=== PATIENT | female | born 1975 | race African-American/Black ===

== ENCOUNTER → 2016-10-14 | Outpatient (CLI) | payer OTHER ==
[~2016-10-14] MED LIST: ADVAIR 500-501 EACH INH; ALBUTEROL INH; AMOXICILLIN875 MG PO; AURALGAN OTIC S10 M1 AD; BENTYL20 MG DOB; FERROUS SULFAT325 MG PO; INHALER INH; LISINOPRIL20 MG PO; OMEPRAZOLE20 M2 PO; PHENERGAN25 M1 DOB; PRENATAL1 TA1 PO; TAMIFLU75 M1 PO; ZYRTEC10 M2 PO
[2016-10-14 17:37] LABS: PROTHROMBIN TIME (PATIENT) 10.6 SECONDS (9.6-11.5)
== END | disposition home or self-care (01) ==
LOC: CBAR 16:24
PROVIDERS: Orthopaedic Surgery
DX: Z01.812 Encounter for preprocedural laboratory examination (principal); E66.01 Morbid (severe) obesity due to excess calories
CPT/HCPCS: 36415; 84443; 85610; 86677; G0463

== ENCOUNTER → 2016-11-08 | Outpatient (CLI) | payer OTHER ==
--- NOTE | ~2016-11-08 | EKG ---
PATIENT: RAGHAVENDRA MOREIRA UNIT #: [id number] Ventricular Rate: 63 BPM Atrial Rate: 63 BPM P-R Interval: 158 ms QRS Duration: 86 ms Q-T Interval: 440 ms QTC Calculation(Bezet): 450 ms P Ayden: 24 degrees Calculated R Ayden: 14 degrees Calculated T Ayden: 52 degrees Diagnosis Line: Normal sinus rhythm Diagnosis Line: Normal ECG Diagnosis Line: When compared with ECG of 10-MAR-2015 19:37, Diagnosis Line: No significant change was found Diagnosis Line: Confirmed by CRUZ GROSSMAN MD ([id number]) on Diagnosis Line: 11/08/2016 11:21:38 PM INTERPRETING MD: DUANE
--- NOTE | ~2016-11-08 | CR97 ---
[facility] A Service of [facility] & [facility] RADIOLOGY TEXT RESULTS PATIENT: RAGHAVENDRA MOREIRA LOCATION: [facility] : 73 UNIT #: [id number] AGE: [address]: Lino Crook III, MD SEX: F ORDER DR: [id number] [facility] [address] [place], [place] [address] [id number] O MR#: [id number] Acc #: [id number] NAME: RAGHAVENDRA MOREIRA : 1975 SEX: F STUDY DATE/TIME: 11/08/2016 8:13 UNIT: [facility] ROOM: STUDY DESCRIPTION: CR Esophagram Attending Physician: Lino Crook III, M.D. Referring Physician: Lino Crook III, M.D. Ordering Physician: Lino Crook III, M.D. Primary Care Physician: Madeline Zhou A.P.R.N. MEDICAL IMAGING REPORT This report is preliminary unless electronic signature is present EXAM Barium esophagram. INDICATION Morbid obesity. Preop for Lap-Band surgery. The fluoro time is 0.3 minutes. 6 fluoroscopic images were taken. FINDINGS There is a small hiatal hernia. The esophageal motility is normal. There is no evidence of stricture. IMPRESSION Small hiatal hernia, otherwise unremarkable. Dictated by... Paco Rain M.D. THIS IS AN ELECTRONICALLY VERIFIED REPORT Paco Rain M.D. at 11/08/2016 4:05 PM BRAXTON/mariaa TD: 11/08/2016 10:40 JOB #: [id number] MEDICAL IMAGING REPORT Page 1 of 1 COPY
--- NOTE | ~2016-11-08 | CR63 ---
[facility] A Service of [facility] & [facility] RADIOLOGY TEXT RESULTS PATIENT: RAGHAVENDRA MOREIRA LOCATION: [facility] : 73 UNIT #: [id number] AGE: [address]: Lino Crook III, MD SEX: F ORDER DR: [id number] [facility] [address] [place], [place] [address] [id number] O MR#: [id number] Acc #: [id number] NAME: RAGHAVENDRA MOREIRA : 1975 SEX: F STUDY DATE/TIME: 11/08/2016 7:40 UNIT: [facility] ROOM: STUDY DESCRIPTION: CR Chest 2 View Attending Physician: Lino Crook III, M.D. Referring Physician: Lino Crook III, M.D. Ordering Physician: Lino Crook III, M.D. Primary Care Physician: Madeline Zhou A.P.R.N. MEDICAL IMAGING REPORT This report is preliminary unless electronic signature is present EXAM PA and lateral chest. HISTORY Acid reflux, shortness of breath, preop Lap-Band placement. TECHNIQUE PA and lateral views are obtained. FINDINGS The cardiovascular configuration remains normal and the lungs are clear compared with July 31, 2016. There has been no change. CONCLUSION Normal chest. Dictated by... Jef Freeman M.D. THIS IS AN ELECTRONICALLY VERIFIED REPORT Jef Freeman M.D. at 11/08/2016 5:18 PM [place] TD: 11/08/2016 09:22 JOB #: [id number] MEDICAL IMAGING REPORT Page 1 of 1 COPY
[2016-11-08 08:54] LABS: HEMATOCRIT 35.9 % (35.0-45.0); HEMOGLOBIN 11.9 gm/dL (12.0-16.0); MEAN CELL VOLUME 87.5 FL (83-96); MEAN CORPUSCULAR HGB CONC 33.1 g/dL (30-36); RED BLOOD COUNT 4.1 X10e (3.90-5.30); RED CELL DISTRIBUTION WIDTH 13.8 % (11.0-15.5); WHITE BLOOD COUNT 6.9 X10e3 (4.0-10.5)
[2016-11-08 09:49] LABS: ALBUMIN SERUM 4.2 g/dL (3.5-5.0); BILIRUBIN,TOTAL 0.6 mg/dL (0.2-2.0); CALCIUM SERUM 9.5 mg/dL (8.4-10.2); CREATININE SERUM 0.7 mg/dL (0.6-1.4); GLOM FILT RATE Estimated 123.9 mL/min (>60); POTASSIUM 3.8 mmol/L (3.5-5.1)
== END | disposition home or self-care (01) ==
LOC: CRAD 07:11
PROVIDERS: Surgery
DX: Z01.818 Encounter for other preprocedural examination (principal); E66.01 Morbid (severe) obesity due to excess calories; K44.9 Diaphragmatic hernia without obstruction or gangrene
CPT/HCPCS: 36415; 71020; 74220; 80053; 80061; 84443; 85027; 93005

== ENCOUNTER → 2016-11-20 | Day surgery (SDC) | payer OTHER ==
--- NOTE | ~2016-11-20 | OR ---
Unit #: [id number] #: [id number] Patient: RAGHAVENDRA MOREIRA [id number] [facility] [place], [place] [address] [id number] O MR#: [id number] NAME: RAGHAVENDRA MOREIRA ROOM: Date of Procedure: 11/20/2016 Admission Date: 11/20/2016 Surgeon: Lino Crook III, M.D. : 1975 Attending Physician: Lino Crook III, M.D. Primary Care Physician: Madeline Zhou A.P.R.N. OPERATIVE REPORT PREOPERATIVE DIAGNOSIS Chronic morbid obesity. POSTOPERATIVE DIAGNOSIS Chronic morbid obesity. SECONDARY DIAGNOSIS Anterior paraesophageal hernia. PROCEDURE PERFORMED Laparoscopic adjustable gastric banding (AP standard with low-profile port and laparoscopic paraesophageal hernia repair). [facility] [employer] REPORTER Dr. Jef Clark. SPECIMENS None. COMPLICATIONS None apparent. ESTIMATED BLOOD LOSS Minimal. INDICATIONS FOR PROCEDURE This is a 41-year-old lady, who has chronic morbid obesity with a BMI of 45 and associated comorbidities of hypertension and reflux. She has been through the bariatric program at [facility] and understands the risks and benefits of the procedure. DESCRIPTION OF PROCEDURE After consent was obtained, including the risks and benefits of slippage, erosion, port dysfunction, and possible failure of weight loss due to noncompliance, the patient was taken to the operating room and placed in the supine position. General anesthetic was administered and the abdomen was prepped and draped in standard surgical fashion. I began by making a 2 cm incision just above and to the left of the umbilicus. I used a Visiport to enter the peritoneal cavity without any difficulty. C02 pneumoperitoneum was then established. Next, I placed a 5 mm port in the right upper quadrant, a 5 mm Adelita liver retractor in Unit #: [id number] #: [id number] Patient: RAGHAVENDRA MOREIRA the subxiphoid region to provide exposure of the gastroesophageal junction. Next, a 10 mm port was placed in the left upper quadrant and a 5 mm port was placed in the left lateral subcostal region. I began by performing an examination of the GE junction to evaluate for a hiatal hernia. We then scored the peritoneal attachments overlying the angle of His. I then opened up the clear space in the gastrohepatic ligament, and then using 2 blunt graspers, I identified the small fat pad crossing over the right crura. I swept the fat anterior to the crura off the crura and using the pars flaccida, I created a retrogastric tunnel where the blunt grasper exited at the angle of His. Once I had made this tunnel safely, I then inserted an Allergan AP band into the abdominal cavity. This adjustable gastric band was then place around the upper part of the stomach and fastened and buckled anteriorly. We then tacked the lateral fundus over the band to the proximal pouch with 2 interrupted 0 Ethibond sutures. I then used a third stitch to imbricate the excess anterior stomach by going from the lesser curvature up towards where the last stitch was placed. We then had excellent hemostasis. I removed the Adelita liver retractor. We then removed the port tubing through the initial port incision. The rest of the ports were removed, and the pneumoperitoneum was released. I then left a small tail on the tubing. We then attached the port to the excess band tubing. We placed a piece of Prolene mesh along the back side of the port and used a Prolene stitch to anchor this mesh in place. We then trimmed the excess mesh so that just a small footprint of mesh was in place behind the port. I then inserted the tubing back into the abdominal cavity, and we placed the port into a small pocket that was made just inferior to where our initial port incision was made. The mesh was in direct contact with the fascia, and this will scar in place to hold the port in place. We then injected all the port sites with 0.25% plain Marcaine, and I reapproximated the skin edges with interrupted 4-0 Vicryl subcuticular sutures. Steri-strips were then applied. The patient tolerated the procedure without any problems and returned to the recovery room in stable condition. ADDENDUM After exposure of the GE junction, the patient was noted to have a small to medium size anterior paraesophageal hernia. I scored the phrenoesophageal ligament, reduced the hernia defect and after identifying both the right and left crura, I reapproximated the defect with an interrupted 0 Ethibond [id number] suture. I then proceeded with the case as listed above. Dictated by... Lino Crook III, M.D. VCL/dennis TD: 11/21/2016 08:11 JOB #: [id number] Unit #: [id number] #: [id number] Patient: RAGHAVENDRA MOREIRA OPERATIVE REPORT Page 1 of 1 X Lino Crook III, MD PROCEDURE OPERATIVE NOTE
== END | disposition home or self-care (01) ==
LOC: CSUR 08:39
DX: E66.01 Morbid (severe) obesity due to excess calories (principal); K44.9 Diaphragmatic hernia without obstruction or gangrene; I10 Essential (primary) hypertension; K21.9 Gastro-esophageal reflux disease without esophagitis; J45.909 Unspecified asthma, uncomplicated; M19.072 Primary osteoarthritis, left ankle and foot; Z68.42 Body mass index [BMI] 45.0-49.9, adult; Z79.51 Long term (current) use of inhaled steroids; Z79.899 Other long term (current) drug therapy
CPT/HCPCS: 84703; C1781; J0330; J0690; J1100; J1650; J1885; J2250; J2405; J2710; J3010

== ENCOUNTER → 2017-01-13 | Outpatient (CLI) | payer SELFPAY | END | disposition home or self-care (01) | LOC: CBAR 15:46 | DX: E66.01 Morbid (severe) obesity due to excess calories (principal) | CPT/HCPCS: 76000 ==

== ENCOUNTER → 2017-01-20 | Outpatient (CLI) | payer OTHER ==
[2017-01-20 15:58] LABS: HEMATOCRIT 34.3 % (35.0-45.0); HEMOGLOBIN 11.1 gm/dL (12.0-16.0); MEAN CORPUSCULAR HEMOGLOBIN 27.7 PG (28-34); MEAN CORPUSCULAR HGB CONC 32.3 g/dL (30-36); MEAN PLATELET VOLUME 7.9 FL (6.5-11.5); RED BLOOD COUNT 3.98 X10e (3.90-5.30); RED CELL DISTRIBUTION WIDTH 14.3 % (11.0-15.5); WHITE BLOOD COUNT 7.3 X10e3 (4.0-10.5)
[2017-01-20 16:23] LABS: BUN/CREATININE RATIO 18.75; CALCIUM SERUM 9.3 mg/dL (8.4-10.2); CREATININE SERUM 0.8 mg/dL (0.6-1.4); GLOM FILT RATE Estimated 105.5 mL/min (>60); POTASSIUM 3.5 mmol/L (3.5-5.1)
== END | disposition home or self-care (01) ==
LOC: CAMB 15:00
PROVIDERS: Surgery
DX: Z01.812 Encounter for preprocedural laboratory examination (principal)
CPT/HCPCS: 36415; 80048; 85027

== ENCOUNTER → 2017-01-24 | Day surgery (SDC) | payer OTHER ==
--- NOTE | ~2017-01-24 | OR ---
Unit #: [id number] #: [id number] Patient: RAGHAVENDRA MOREIRA [id number] [address] [id number] [place] MR#: [id number] NAME: RAGHAVENDRA MOREIRA ROOM: [address] Date of Procedure: 01/24/2017 Admission Date: 01/24/2017 Surgeon: Lino Crook III, M.D. : 1975 Attending Physician: Lino Crook III, M.D. Referring Physician: Lino Crook III, M.D. Primary Care Physician: Madeline Zhou A.P.R.N. OPERATIVE REPORT PREOPERATIVE DIAGNOSIS Flipped lap band port. POSTOPERATIVE DIAGNOSIS Flipped lap band port. PROCEDURE PERFORMED Open revision of gastric band port. ANESTHESIA General. SPECIMENS None. COMPLICATIONS None apparent. ESTIMATED BLOOD LOSS Minimal. INDICATIONS FOR PROCEDURE This is a 41-year-old lady, who has recently undergone gastric banding. She came in for her first adjustment 2 weeks ago. I was unable to find her port in the office and after taking her to fluoroscopy, it appeared that the port was tilted completely on its side and I was not able to access it. She is here today for revision. DESCRIPTION OF PROCEDURE After consent was obtained, the patient was brought to the operating room and placed in the supine position. General anesthetic was administered and her abdomen was prepped and draped in standard surgical fashion. I made a 1 inch long incision overlying the port itself. I dissected down and I was able to identify the port which was on its side. Once it was freed up from all the surrounding scar tissue, I then identified the anterior fascia. I then elevated this with an Allis clamp and placed 2 lateral 0 Ethibond stay sutures. The tails of the sutures were then brought up through the eyelets of the port. The excess tubing was fed back into the abdominal cavity and the sutures were tied down laterally. I had excellent hemostasis. The incision was injected with 0.25% plain Marcaine and I reapproximated the skin edges with a running 4-0 Vicryl subcuticular suture. Steri-Strips were then applied. The patient Unit #: [id number] #: [id number] Patient: RAGHAVENDRA MOREIRA tolerated the procedure without any problems and returned to the recovery room in stable condition. Dictated by... Lino Crook III, M.D. VCL/dennis TD: 01/25/2017 06:47 JOB #: [id number] OPERATIVE REPORT Page 1 of 1 X Lino Crook III, MD PROCEDURE OPERATIVE NOTE
== END | disposition home or self-care (01) ==
LOC: CSUR 08:21 → CPACUOF 09:57 → CSUR 09:57
DX: K95.09 Other complications of gastric band procedure (principal); R63.2 Polyphagia; I12.9 Hypertensive chronic kidney disease with stage 1 through stage 4 chronic kidney disease, or unspecified chronic kidney disease; N18.9 Chronic kidney disease, unspecified; J45.909 Unspecified asthma, uncomplicated; K21.9 Gastro-esophageal reflux disease without esophagitis; M19.90 Unspecified osteoarthritis, unspecified site; E66.01 Morbid (severe) obesity due to excess calories; Z68.41 Body mass index [BMI] 40.0-44.9, adult; Z79.899 Other long term (current) drug therapy; Z98.890 Other specified postprocedural states; Y83.1 Surgical operation with implant of artificial internal device as the cause of abnormal reaction of the patient, or of later complication, without mention of misadventure at the time of the procedure
CPT/HCPCS: 84703; J0690; J2250; J2405; J3010